=== PATIENT | male | born 1955 | race Caucasian/White ===

== ENCOUNTER → 2022-06-19 | Outpatient (CLI) | payer MEDICARE ==
[~2022-06-19] MED LIST: AMLO-258 PO; ATOR40TA69 PO; CLOP75TA32 PO; CYCL-309 PO; DOCU-116 PO; GABA100C PO; HYDR-4060 PO; LOSA100T58 PO; METF-446 PO; METO-391 PO
[2022-06-19 15:44] LABS: APPEARANCE BODY FLUID BLOODY (CLEAR); SPECIMENTYPE,BODY FLUID SYNOVIAL
[2022-06-19 15:45] LABS: BODY FLUID RBC 74000 /cu. mm.; BODY FLUID WBC 756 /cu. mm.; COLOR,BODY FLUID RED (LT YELLOW); TOTAL VOLUME,BODY FLUID 10 mL
[2022-06-19 16:08] LABS: BF LYMPHOCYTE 12 %; BF MONOCYTE 2 %
== END | disposition home or self-care (01) ==
LOC: LAB 13:55
PROVIDERS: ATTEND Student in an Organized Health Care Education/Training Program
DX: L76.34 Postprocedural seroma of skin and subcutaneous tissue following other procedure (principal)
CPT/HCPCS: 87071; 87076; 87077; 87186; 87205; 89051

== ENCOUNTER → 2024-06-27 | Outpatient (CLI) | payer MEDICARE ==
[~2024-06-27] MED LIST changes: -LOSA100T58 PO; +LOSA100T59 PO
--- NOTE | 2024-06-27 14:45 | HMCIMG ---
Exam Type: CT of the temporal bones without contrast Technique: Spiral axial images were performed through the mastoid promontories bilaterally, at 0.4 mm. Both sagittal and coronal reconstructions were performed. CT Dose Index (CTDI): mGy Dose Length Product (DLP): total Clinical Information: Comparison: Findings: Opacification of multiple mastoid air cells seen without sclerosis to suggest chronic otomastoiditis. External auditory canal inflammatory changes of mucositis are seen as well. The bilateral middle ear cleft are normal and the ossicles are normal as well. The cochlea, vestibule, vestibular and cochlear aqueducts are unremarkable. The facial nerve canal is preserved and the semicircular canals are intact. The internal auditory canal is preserved as well. The carotid canal and jugular foramen are preserved. The temporomandibular joint is intact. Impression: Findings consistent with acute bilateral otomastoiditis. No sclerosis or bone erosions to suggest chronic mastoiditis.
== END | disposition home or self-care (01) ==
LOC: RAH 13:37
PROVIDERS: ATTEND Otolaryngology
DX: H70.12 Chronic mastoiditis, left ear (principal); H60.90 Unspecified otitis externa, unspecified ear; K12.30 Oral mucositis (ulcerative), unspecified
CPT/HCPCS: 70480